=== PATIENT | male | born 1950 | race Caucasian/White ===

== ENCOUNTER 2018-08-01 13:50 | Emergency (ER) | payer BC, MEDICARE, OTHER ==
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
[2018-08-01 17:41] LABS: ABS Basophils 0.1 10^3/ul (0-0.2); ABS Eosinophils 0.4 10^3/ul (0-0.6); ABS Lymphocytes 2.1 10^3/ul (1.0-4.8); ABS Monocytes 0.9 10^3/ul (0-0.8); ABS Neutrophils 8.8 10^3/ul (1.5-7.7); Eosinophil % 2.9 %; Hematocrit 45 % (42-52); Hemoglobin 14.7 g/dL (14.0-18.0); Lymphocyte % 16.9 %; Mean Corpuscular HGB Conc 33 g/dL (31-36); Mean Corpuscular Hemoglobin 29 pg (27-31); Mean Corpuscular Volume 88 fL (80-94); Mean Platelet Volume 7.9 fL (7.4-10.4); Platelet Count 294 10^3/uL (150-450); Red Blood Count 5.07 10^6 /uL (4.18-5.48); Red Cell Distribution Width 15 % (10-15); White Blood Count 12.3 10^3/uL (3.5-10.8)
[2018-08-01 17:55] LABS: Albumin/Globulin Ratio 1.3 (1-3); BUN/Creatinine Ratio 20.6 (8-20); Calcium 9.5 mg/dL (8.6-10.3); EGFR African American 83.4 (>60); EGFR Non-African American 68.9 (>60); Globulin 3.1 g/dL (2-4); Magnesium 1.8 mg/dL (1.9-2.7); Potassium 4.7 mmol/L (3.5-5.0); Total Bilirubin 0.5 mg/dL (0.2-1.0); Total Protein 7.1 g/dL (6.4-8.9)
[2018-08-01] MEDS ORDERED: Magnesium Chloride EC TAB* 64 MG PO ONE (17:56)
[2018-08-01 18:14] VITALS: BP 158/90
== END 2018-08-01 18:12 | disposition home or self-care (01) ==
LOC: ED 13:50
DX: M79.661 Pain in right lower leg (principal); E11.9 Type 2 diabetes mellitus without complications
CPT/HCPCS: 36415; 80053; 83735; 85025; 99282; A9270-GY